=== PATIENT | male | born 1990 | race Caucasian/White ===

== ENCOUNTER 2017-02-06 18:52 | Emergency (ER) | payer BC, OTHER ==
[~2017-02-06] VITALS: Ht 180.3 cm; Wt 106.4 kg
[2017-02-06 18:58] VITALS: Ht 180.3 cm; Wt 106.4 kg
[2017-02-06] MEDS ORDERED: OPTIRAY 320 IV PRN (19:45)
[2017-02-06 20:12] LABS: BASO % 0.3 %; BASO ABS # 0.03 K/uL (0-0.2); COMPLETE YES; EOS % 1.3 %; HEMATOCRIT 43.1 % (42-52); IG% 0.3 %; LYMPH % 21.8 %; LYMPH ABS # 2.33 K/uL (1.2-3.4); MEAN CELL VOLUME 92.7 fL (80-100); MEAN CORPUSCULAR HEMOGLOBIN 31.2 pg (25-34); MEAN CORPUSCULAR HGB CONC 33.6 g/dl (32-36); MEAN PLATELET VOLUME 10.7 fL (7.4-10.4); MONO % 9.4 %; NEUT % 66.9 %; PLATELET COUNT 295 K/uL (130-400); RED BLOOD COUNT 4.65 M/uL (4.7-6.1); WHITE BLOOD COUNT 10.67 K/uL (4.8-10.8)
[2017-02-06 20:26] LABS: PROTHROMBIN TIME (PATIENT) 10.3 SECONDS (9.0-12.0)
[2017-02-06 20:30] LABS: ALT/SGPT 45 U/L (12-78); AMYLASE 50 U/L (25-115); BLOOD UREA NITROGEN 14 mg/dl (7-18); BUN/CREATININE RATIO 12.4 (10-20); CALCIUM 8.4 mg/dl (8.5-10.1); CARBON DIOXIDE 30 mmol/L (21-32); CHLORIDE 102 mmol/L (98-107); GLUCOSE 146 mg/dl (70-99); POTASSIUM 3.7 mmol/L (3.5-5.1); SODIUM 137 mmol/L (136-145)
[2017-02-06 20:33] LABS: ALKALINE PHOSPHATASE 105 U/L (45-117); AST/SGOT 52 U/L (15-37)
[2017-02-06 20:35] LABS: ACETAMINOPHEN < 2 ug/ml (10-30)
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
[2017-02-06 21:54] LABS: BENZODIAZEPINE, URINE NEG (NEG); COCAINE,URINE NEG (NEG); PHENCYCLIDINE, URINE NEG (NEG)
[2017-02-06 23:35] VITALS: BP 134/71; PULSE 78; TEMP 37.1; O2SAT 95
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
[2017-02-08 11:35] LABS: ISTAT CARBON DIOXIDE < 5 mEq/l (24-31); ISTAT CHLORIDE 97 mEq/L (101-112); ISTAT CREATININE 1.2 mg/dl (0.6-1.3); ISTAT HEMATOCRIT 46 % (42-52); ISTAT HEMOGLOBIN 15.6 g/dl (14.0-18.0); ISTAT SODIUM 138 mEq/L (135-144)
== END 2017-02-06 23:36 | disposition home or self-care (01) ==
LOC: EDBD 18:52 → C.EDB 18:53
DX: T50.7X1A Poisoning by analeptics and opioid receptor antagonists, accidental (unintentional), initial encounter (principal); R06.81 Apnea, not elsewhere classified; S06.9X9A Unspecified intracranial injury with loss of consciousness of unspecified duration, initial encounter; V49.49XA Driver injured in collision with other motor vehicles in traffic accident, initial encounter; Y92.481 Parking lot as the place of occurrence of the external cause; F17.210 Nicotine dependence, cigarettes, uncomplicated

== ENCOUNTER → 2017-02-06 | Outpatient (CLI) | payer OTHER | END | disposition home or self-care (01) | LOC: C.LAB 19:46 | DX: Z04.8 Encounter for examination and observation for other specified reasons (principal) ==

== ENCOUNTER 2017-02-23 20:45 | Inpatient (IN) | payer BC, OTHER ==
[~2017-02-23] VITALS: Ht 180.3 cm; Wt 100.0 kg
[2017-02-23] MEDS ORDERED: VANCOMYCIN INJ 1,000 MG in SODIUM CHLORIDE 0.9% 250ML 250 ML IV STA (21:03)
[2017-02-23] MEDS ORDERED: PIPERACILLIN/TAZOBACTAM 4.5 GM/100ML D5W IV STA (21:03)
[2017-02-23] MEDS ORDERED: ETHYL CHLORIDE AER PER SPRAY 100 ML CAN ONE (21:07)
--- NOTE | 2017-02-23 21:21 | EMERGENCY ROOM VISIT NOTE ---
History Report prepared by Francisco: Lisandro Westbrook Under the Supervision of: Dr. Jan Arnold M.D. 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 He states that he does not know how the infection started but believes that it may have been a spider bite. He notes that he has a lot of spiders in his house. He tried to open it and drain it himself yesterday with a knife and had some pus released from the area. However, he woke up this morning and his arm was worse. It is also red and swollen. The patient is febrile. He denies any pain to his armpit. He denies any chest pain, shortness of breath, abdominal pain, nausea, vomiting, abnormal urinary symptoms, melena, hematochezia, or diarrhea. He denies any known medical problems. Per past medical records, the patient has had an abscess in the same area in the past. He is a known IV drug user. Source of History: patient Onset: yesterday Position: arm (left) Symptom Intensity: moderate Quality: ache Timing: worsening Associated Symptoms: + fevers, No chest pain, No SOB, No nausea, No vomiting , No abdominal pain, No melena, No hematochezia, No diarrhea, No urinary symptoms Review of Systems All systems have been listed, reviewed, and are negative other than those previously mentioned. Please see Additional Medical History Sheet. Past Medical & Surgical Medical Problems: (1) Drug abuse Surgical Problems: (1) History of eye surgery Family History Asthma Blood clots Diabetes mellitus Hypertension Kidney stones Seizures Social History Smoking Status: Current Every Day Smoker Alcohol Use: occasionally Drug Use: cocaine, heroin, marijuana Marital Status: single Current/Historical Medications Scheduled Fish Oil ([place]-3), 1 CAP PO DAILY Multivitamin (Multivitamin), 1 TAB PO DAILY Valacyclovir (Valtrex), 1,000 MG PO DAILY Allergies Coded Allergies: No Known Allergies (Unverified , 01/15/16) Physical Exam Vital Signs Date Time Temp Pulse Resp B/P (MAP) Pulse Ox O2 Delivery O2 Flow Rate FiO2 02/23/17 21:56 79 16 139/73 96 Room Air 10/24/17 20:49 36.9 105 20 158/90 94 Room Air Physical Exam GENERAL: Patient awake, alert, oriented x 3. Patient follows commands. Patient does not appear toxic. Patient is adequately hydrated and well- nourished. SKIN: No erythema, pallor, cyanosis or rash HEENT: Normal head, pupils equal, reactive to light and accommodation. LUNGS: Clear to auscultation. No wheezes, no rales, no rhonchi. HEART: No murmurs. No gallops. No rubs ABDOMEN: Soft and nontender. EXTREMITIES: There is an 8x8 cm erythematous, tender, firm, and warm cellulitic area over the left antecubital fossa. No signs of foreign body or retained foreign body. No pedal or pretibial edema. No calf or thigh tenderness. NEUROLOGIC: Cranial nerves II-XII within normal limits. No gross motor sensory function deficits. Medical Decision & Procedures ER Provider Diagnostic Interpretation: Radiology results as stated below per my review and radiologist interpretation: CHEST 2 VIEWS ROUTINE HISTORY: Left arm cellulitis COMPARISON: Chest 02/06/2017. FINDINGS: The lungs are clear. Cardiac silhouette is normal in size. No pleural effusions. No pneumothorax. IMPRESSION: No acute process. Electronically signed by: Antonio Sloan M.D. 02/23/2017 10:53 PM Dictated Date/Time: 02/23/2017 10:52 PM LEFT ARM ULTRASOUND CLINICAL HISTORY: Left arm swelling. Left arm abscess. COMPARISON STUDY: None. FINDINGS: The left cephalic vein is thrombosed at the antecubital fossa. There is a large edematous area within the subcutaneous fat of the left antecubital fossa. No loculated fluid collections at this time. IMPRESSION: 1. Thrombosed cephalic vein at the left antecubital fossa. 2. Large edematous area within the subcutaneous fat of the antecubital fossa suggestive of phlegmon or developing abscess. No clear loculated fluid collection at this time. Electronically signed by: Antonio Sloan M.D. 02/23/2017 10:57 PM Dictated Date/Time: 02/23/2017 10:53 PM Laboratory Results 02/23/17 21:32 Red Blood Count 4.39, Mean Corpuscular Volume 91.8, Mean Corpuscular Hemoglobin 31.4, Mean Corpuscular Hemoglobin Concent 34.2, Mean Platelet Volume 10.4, Neutrophils (%) (Auto) 65.0, Lymphocytes (%) (Auto) 21.8, Monocytes (%) (Auto) 11.1, Eosinophils (%) (Auto) 1.6, Basophils (%) (Auto) 0.3, Neutrophils # (Auto ) 6.54, Lymphocytes # (Auto) 2.19, Monocytes # (Auto) 1.12, Eosinophils # (Auto ) 0.16, Basophils # (Auto) 0.03 02/23/17 21:32 Test 02/23/17 21:32 White Blood Count 10.06 K/uL (4.8-10.8) Red Blood Count 4.39 M/uL (4.7-6.1) Hemoglobin 13.8 g/dL (14.0-18.0) Hematocrit 40.3 % (42-52) Mean Corpuscular Volume 91.8 fL (80-100) Mean Corpuscular Hemoglobin 31.4 pg (25-34) Mean Corpuscular Hemoglobin Concent 34.2 g/dl (32-36) Platelet Count 337 K/uL (130-400) Mean Platelet Volume 10.4 fL (7.4-10.4) Neutrophils (%) (Auto) 65.0 % Lymphocytes (%) (Auto) 21.8 % Monocytes (%) (Auto) 11.1 % Eosinophils (%) (Auto) 1.6 % Basophils (%) (Auto) 0.3 % Neutrophils # (Auto) 6.54 K/uL (1.4-6.5) Lymphocytes # (Auto) 2.19 K/uL (1.2-3.4) Monocytes # (Auto) 1.12 K/uL (0.11-0.59) Eosinophils # (Auto) 0.16 K/uL (0-0.5) Basophils # (Auto) 0.03 K/uL (0-0.2) RDW Standard Deviation 48.9 fL (36.4-46.3) RDW Coefficient of Variation 14.4 % (11.5-14.5) Immature Granulocyte % (Auto) 0.2 % Immature Granulocyte # (Auto) 0.02 K/uL (0.00-0.02) Anion Gap 5.0 mmol/L (3-11) Est Creatinine Clear Calc Drug Dose 156.3 ml/min Estimated GFR () 139.0 Estimated GFR (Non- 120.0 BUN/Creatinine Ratio 14.4 (10-20) Calcium Level 8.8 mg/dl (8.5-10.1) Total Bilirubin 0.3 mg/dl (0.2-1) Aspartate Amino Transf (AST/SGOT) 61 U/L (15-37) Alanine Aminotransferase (ALT/SGPT) 44 U/L (12-78) Alkaline Phosphatase 107 U/L (45-117) Total Protein 7.7 gm/dl (6.4-8.2) Albumin 3.4 gm/dl (3.4-5.0) Globulin 4.3 gm/dl (2.5-4.0) Albumin/Globulin Ratio 0.8 (0.9-2) Laboratory results as stated above per my review. Medications Administered Medications (Trade) Dose Ordered Sig/Lloyd Route Start Time Stop Time Status Last Admin Dose Admin Piperacillin Sod/ Tazobactam Sod (Zosyn Iv) 4.5 gm NOW STAT IV 02/23/17 21:03 02/23/17 21:05 DC 02/23/17 21:52 4.5 GM Vancomycin HCl 1000 mg/Sodium Chloride 270 ml @ 125 mls/hr NOW STAT IV 02/23/17 21:03 02/23/17 23:12 DC 02/23/17 21:03 125 MLS/HR Procedure Incision & Drainage Indication: Rule out abscess Location: Left antecubital fossa Verbal consent was obtained after the risks and benefits were explained, including but not limited to bleeding, scarring, infection, pain, and bone/joint /nerve damage. At this time, the risks of the procedure are less than the risks of NOT performing the procedure. A time out was taken and the correct patient and site identified. The skin was prepped with betadine and a sterile field set. The wound was anesthetized with ethyl chloride. The abscess cavity was entered with a number 11 blade and bloody material expressed. Debridement was not performed. Packing placed and a sterile dressing applied. Detailed wound care instructions and signs and symptoms of worsening infection reviewed with the patient. No complications and the patient tolerated the procedure well. ED Course 2100: Past medical records reviewed. The patient was evaluated in room C8. A complete history and physical examination was performed. 2102: Ordered Vancomycin HCl 1000 mg/Sodium Chloride 270 ml @ 125 mls/hr IV, Zosyn Iv 4.5 gm IV 2105: I performed an incision and drainage procedure at this time. Please see the procedure note for more information. 2230: Upon reevaluation, the patient is resting. I discussed today's findings with him. He verbalized agreement of the treatment plan. I spoke with Dr. Ramirez of the [place] [facility] to evaluate the patient for further management. Medical Decision I considered multiple diagnoses including: cellulitis, insect bite, abscess, IV drug abuse and MRSA. Multiple labs and imaging were obtained. Please see above. Further history from the patient reveals past IV drug abuse. Last use was 3 weeks ago. Most likely this infection is secondary to IV drug abuse and not from an insect bite. The patient has a large cellulitic questionable abscess formation in his left antecubital fossa. Left cephalic vein is occluded. The patient was started on IV antibiotics after blood cultures were obtained. I did make a small incision in the abscess but little to no pus was released. I discussed care with the patient and with the hospitalist. The patient had a prior history of a similar event a few years ago. Medication Reconcilliation Current Medication List: was personally reviewed by me Blood Pressure Screening Patient's blood pressure: Elevated blood pressure Blood pressure disposition: Elevated BP felt to be situational Consults Time Called: 2229 Consulting Physician: Dr. Ramirez - [facility] Returned Call: [phone] Discussed the patient's case with him. The patient will be evaluated for further management. Impression Primary Impression: Cellulitis of left arm Scribe Attestation The scribe's documentation has been prepared under my direction and personally reviewed by me in its entirety. I confirm that the note above accurately reflects all work, treatment, procedures, and medical decision making performed by me. Departure Information Dispostion Being Evaluated By Hospitalist Referrals No Doctor, Assigned (PCP) Patient Instructions My [facility]
[2017-02-23] MEDS ORDERED: MULT-506 PO (21:38)
[2017-02-23] MEDS ORDERED: OMEG10007 PO (21:39)
[2017-02-23] MEDS ORDERED: VALA500T60 PO (21:40)
[2017-02-23 21:46] LABS: BASO % 0.3 %; BASO ABS # 0.03 K/uL (0-0.2); COMPLETE YES; EOS % 1.6 %; HEMATOCRIT 40.3 % (42-52); IG% 0.2 %; LYMPH % 21.8 %; LYMPH ABS # 2.19 K/uL (1.2-3.4); MEAN CELL VOLUME 91.8 fL (80-100); MEAN CORPUSCULAR HEMOGLOBIN 31.4 pg (25-34); MEAN CORPUSCULAR HGB CONC 34.2 g/dl (32-36); MEAN PLATELET VOLUME 10.4 fL (7.4-10.4); MONO % 11.1 %; PLATELET COUNT 337 K/uL (130-400); RED BLOOD COUNT 4.39 M/uL (4.7-6.1); WHITE BLOOD COUNT 10.06 K/uL (4.8-10.8)
[2017-02-23 22:05] LABS: BUN/CREATININE RATIO 14.4 (10-20); CALCIUM 8.8 mg/dl (8.5-10.1); CREATININE 0.87 mg/dl (0.60-1.40); POTASSIUM 3.5 mmol/L (3.5-5.1)
[2017-02-23 22:08] LABS: ALB/GLOB RATIO 0.8 (0.9-2)
--- NOTE | 2017-02-23 22:54 | DIAGNOSTIC IMAGING REPORT ---
CHEST 2 VIEWS ROUTINE HISTORY: Left arm cellulitis COMPARISON: Chest 02/06/2017. FINDINGS: The lungs are clear. Cardiac silhouette is normal in size. No pleural effusions. No pneumothorax. IMPRESSION: No acute process. Electronically signed by: Antonio Sloan M.D. 02/23/2017 10:53 PM Dictated Date/Time: 02/23/2017 10:52 PM
--- NOTE | 2017-02-23 22:58 | DIAGNOSTIC IMAGING REPORT ---
LEFT ARM ULTRASOUND CLINICAL HISTORY: Left arm swelling. Left arm abscess. COMPARISON STUDY: None. FINDINGS: The left cephalic vein is thrombosed at the antecubital fossa. There is a large edematous area within the subcutaneous fat of the left antecubital fossa. No loculated fluid collections at this time. IMPRESSION: 1. Thrombosed cephalic vein at the left antecubital fossa. 2. Large edematous area within the subcutaneous fat of the antecubital fossa suggestive of phlegmon or developing abscess. No clear loculated fluid collection at this time. Electronically signed by: Antonio Sloan M.D. 02/23/2017 10:57 PM Dictated Date/Time: 02/23/2017 10:53 PM
--- NOTE | 2017-02-23 23:59 | History and Physical ---
History & Physical Date & Time of Service: Feb 23, 2017 at 23:54 Chief Complaint: Abscess On Arm, Care Works Referred Primary Care Physician: No Doctor, Assigned History of Present Illness Source: patient 26 y/o M denies any significant medical history aside form IV drug use. States he last used IV heroin 3 weeks prior. Has developed an abscess-like infection over his L antecubital area with extending cellulitis. Denies any associated fevers. Denies any CP, SOB or night sweats. Past Medical/Surgical History IV heroin use Family History Asthma Blood clots Diabetes mellitus Hypertension Kidney stones Seizures Social History States he only smokes occasionally - does not drink - IV heroin use as above - employed Smoking Status: Current Every Day Smoker Drug Use: cocaine, heroin, marijuana Marital Status: single Multi-Drug Resistant Organisms History of MDRO: No Allergies Coded Allergies: No Known Allergies (Unverified , 01/15/16) Home Medications Scheduled Fish Oil ([place]-3), 1 CAP PO DAILY Multivitamin (Multivitamin), 1 TAB PO DAILY Valacyclovir (Valtrex), 1,000 MG PO DAILY Review of Systems Constitutional: No fever, No chills, No sweats Eyes: No worsening of vision ENT: No hearing loss, No nasal symptoms Respiratory: No cough, No sputum, No wheezing Cardiovascular: No chest pain, No PND Abdomen: No pain, No nausea, No vomiting Musculoskeletal: + muscle pain, + swelling (L arm pain and swelling) Genitourinary - Male: No hematuria, No dysuria Neurologic: No memory loss, No paralysis, No weakness Psychiatric: No depression symptoms Endocrine: No fatigue Hematologic / Lymphatic: No abnormal bleeding/bruising Integumentary: + rash (as above) Physical Exam Vital Signs Date Time Temp Pulse Resp B/P (MAP) Pulse Ox O2 Delivery O2 Flow Rate FiO2 02/23/17 21:56 79 16 139/73 96 Room Air 02/23/17 20:49 36.9 105 20 158/90 94 Room Air General Appearance: WD/WN, no apparent distress Head: normocephalic, atraumatic Eyes: normal inspection ENT: normal ENT inspection, pharynx normal Neck: supple, no adenopathy, thyroid normal, no JVD Respiratory/Chest: chest non-tender, lungs clear, normal breath sounds Cardiovascular: regular rate, rhythm, no edema, no gallop Abdomen/GI: normal bowel sounds, non tender, soft Back: normal inspection, no CVA tenderness Extremities/Musculoskelatal: no calf tenderness, no pedal edema, + pertinent finding (circular wound present on antecubital area with minimal exudate and cellulitis extending to forearm and above elbow ) 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, no motor/sensory deficits, alert, normal mood/affect, normal reflexes, oriented x 3 Skin: + pertinent finding (circular wound present on antecubital area with minimal exudate and cellulitis extending to forearm and above elbow ) Diagnostics Laboratory Results Results Past 24 Hours Test 02/23/17 21:32 Range/Units White Blood Count 10.06 4.8-10.8 K/uL Red Blood Count 4.39 4.7-6.1 M/uL Hemoglobin 13.8 14.0-18.0 g/dL Hematocrit 40.3 42-52 % Mean Corpuscular Volume 91.8 80-100 fL Mean Corpuscular Hemoglobin 31.4 25-34 pg Mean Corpuscular Hemoglobin Concent 34.2 32-36 g/dl Platelet Count 337 130-400 K/uL Mean Platelet Volume 10.4 7.4-10.4 fL Neutrophils (%) (Auto) 65.0 % Lymphocytes (%) (Auto) 21.8 % Monocytes (%) (Auto) 11.1 % Eosinophils (%) (Auto) 1.6 % Basophils (%) (Auto) 0.3 % Neutrophils # (Auto) 6.54 1.4-6.5 K/uL Lymphocytes # (Auto) 2.19 1.2-3.4 K/uL Monocytes # (Auto) 1.12 0.11-0.59 K/uL Eosinophils # (Auto) 0.16 0-0.5 K/uL Basophils # (Auto) 0.03 0-0.2 K/uL RDW Standard Deviation 48.9 36.4-46.3 fL RDW Coefficient of Variation 14.4 11.5-14.5 % Immature Granulocyte % (Auto) 0.2 % Immature Granulocyte # (Auto) 0.02 0.00-0.02 K/uL Sodium Level 136 136-145 mmol/L Potassium Level 3.5 3.5-5.1 mmol/L Chloride Level 101 98-107 mmol/L Carbon Dioxide Level 30 21-32 mmol/L Anion Gap 5.0 3-11 mmol/L Blood Urea Nitrogen 13 7-18 mg/dl Creatinine 0.87 0.60-1.40 mg/dl Est Creatinine Clear Calc Drug Dose 156.3 ml/min Estimated GFR () 139.0 Estimated GFR (Non- 120.0 BUN/Creatinine Ratio 14.4 10-20 Random Glucose 148 70-99 mg/dl Calcium Level 8.8 8.5-10.1 mg/dl Total Bilirubin 0.3 0.2-1 mg/dl Aspartate Amino Transf (AST/SGOT) 61 15-37 U/L Alanine Aminotransferase (ALT/SGPT) 44 12-78 U/L Alkaline Phosphatase 107 45-117 U/L Total Protein 7.7 6.4-8.2 gm/dl Albumin 3.4 3.4-5.0 gm/dl Globulin 4.3 2.5-4.0 gm/dl Albumin/Globulin Ratio 0.8 0.9-2 Microbiology Results 02/23/17 Blood Culture, Received Pending 02/23/17 Blood Culture, Received Pending Impression Assessment and Plan 26 y/o M denies any significant medical history aside form IV drug use. States he last used IV heroin 3 weeks prior. Has developed an abscess-like infection over his L antecubital area with extending cellulitis. Denies any associated fevers. Denies any CP, SOB or night sweats. 1) Abscess - Pt placed on Vanc and Ceftriaxone pending culture results. We will consult ortho as he may need debridement. 2) IVDU - Pt may need counseling prior to DC - He initially did not volunteer information reg use and seems to minimize this so we cannot quantify his habit. It would be fair to assume his dependence may be severe considering the route. Full code - Heparin prophylaxis - total time for this admit including review of labs meds, imaging - discussion with pt and ER attending 40 min Level of Care Med/Surg Resuscitation Status FULL RESUSCITATION VTE Prophylaxis VTE Risk Assessment Done? Y/N: Yes Risk Level: Low Given or contraindicated: Unfractionated heparin SQ
[2017-02-24] MEDS ORDERED: KETOROLAC TROMETHAMINE 30 MG/ML VIAL IV PRN
[2017-02-24] MEDS ORDERED: LORAZEPAM 2 MG/ML 1 ML VIAL IV PRN
[2017-02-24] MEDS ORDERED: ACETAMINOPHEN 325 MG TAB PO PRN
[2017-02-24] MEDS ORDERED: MAGNESIUM HYDROXIDE SUSP 30 ML UDC PO PRN
[2017-02-24] MEDS ORDERED: ALUMINUM/MAGNESIUM/SIMETH (MAALOX MAX) 30 ML UDC PO PRN
[2017-02-24 00:24] VITALS: BP 136/73; PULSE 72; TEMP 36.7; O2SAT 95; Ht 180.3 cm; Wt 100.0 kg
[2017-02-24] MEDS ORDERED: POLYETHYLENE (MIRALAX) 17 GM PACK PO PRN (00:45)
[2017-02-24] MEDS ORDERED: VANCOMYCIN INJ 1,500 MG in SODIUM CHLORIDE 0.9% 500ML 500 ML IV SCH ×2 (01:00→10:00)
[2017-02-24] MEDS: NSS + 20MEQ KCL 1000ML 1,000 ML IV SCH ×2 (01:05→12:07)
[2017-02-24 01:15] LABS: PROTHROMBIN TIME (PATIENT) 10.7 SECONDS (9.0-12.0)
[2017-02-24] MEDS ORDERED: VANCOMYCIN CONSULT ACTIVE PRN (02:00)
[2017-02-24 04:00] VITALS: BP 131/85; PULSE 70; TEMP 36.4; O2SAT 97
[2017-02-24] MEDS: HEPARIN SOD 5000 UNIT/0.5 ML CARP SQ SCH ×3 (05:49→17:27)
[2017-02-24] MEDS: CEFTRIAXONE SOD INJ 1 GM in DEXTROSE 5% ADD-VANTAGE 50ML 50 ML IV SCH (05:49)
--- NOTE | 2017-02-24 06:10 | Pharmacy Progress Note ---
Pharmacy Abx Initial Consult Date of Service Feb 24, 2017. Pharmacy Dosing Scope Date of Consult: 02/23/17 Consultation requested by: Dr. Ramirez Pharmacy is consulted to initiate Vancomycin IV dosing therapy, order appropriate labs and adjust drug dose/frequency. Subjective The patient is a 26 year old male admitted on Feb 23, 2017 at 23:53 with abscess /cellulitis on his (L) upper arm due to history of IV drug abuse. Objective Height (Feet): 5 Height (Inches): 11.00 Weight (Kilograms): 100.000 Vital Signs (Past 12Hrs) Vital Signs Past 12 Hours Date Time Temp Pulse Resp B/P (MAP) Pulse Ox O2 Delivery O2 Flow Rate FiO2 02/24/17 04:00 36.4 70 16 131/85 (100) 97 Room Air 02/24/17 00:24 36.7 72 16 136/73 95 Room Air 02/24/17 00:04 75 18 126/58 98 Room Air 02/23/17 21:56 79 16 139/73 96 Room Air 02/23/17 20:49 36.9 105 20 158/90 94 Room Air Lab Results (24Hrs) Laboratory Tests (24 Hours) Test 02/23/17 21:32 White Blood Count 10.06 K/uL (4.8-10.8) Red Blood Count 4.39 M/uL (4.7-6.1) L Hemoglobin 13.8 g/dL (14.0-18.0) L Hematocrit 40.3 % (42-52) L Mean Corpuscular Volume 91.8 fL (80-100) Mean Corpuscular Hemoglobin 31.4 pg (25-34) Mean Corpuscular Hemoglobin Concent 34.2 g/dl (32-36) Platelet Count 337 K/uL (130-400) Mean Platelet Volume 10.4 fL (7.4-10.4) Neutrophils (%) (Auto) 65.0 % Lymphocytes (%) (Auto) 21.8 % Monocytes (%) (Auto) 11.1 % Eosinophils (%) (Auto) 1.6 % Basophils (%) (Auto) 0.3 % Neutrophils # (Auto) 6.54 K/uL (1.4-6.5) H Lymphocytes # (Auto) 2.19 K/uL (1.2-3.4) Monocytes # (Auto) 1.12 K/uL (0.11-0.59) H Eosinophils # (Auto) 0.16 K/uL (0-0.5) Basophils # (Auto) 0.03 K/uL (0-0.2) Micro Results Date/Time Source Procedure Growth Status 02/23/17 21:32 Blood Blood Culture Pending Received 02/23/17 21:26 Blood Blood Culture Pending Received 02/23/17 21:32 Cellulitis Left Upper Extremity Gram Stain Pending Received 02/23/17 21:32 Cellulitis Left Upper Extremity Wound Culture Pending Received Assessment & Plan Assessment 26 year old male with abscess to (L) upper arm Plan Vancomycin for treatment of abscess Vancomycin IV * Loading dose: 1000 mg (ED) and 1500mg upon presentation to floor total (25 mg /kg) * Maintenance dose: 1500mg IV (15 mg/kg) every 6 hours * Goal trough level for Vancomycin for abscess: 15 to 20 mcg/mL * Trough/Random level ordered prior to 0400 on 02/25/17 * I estimated patients half life at around 5 hours. I feel we will most likely be able to reduce frequency to every 8 hours after first trough level assessed. Pharmacy will continue to follow and will adjust dose/frequency as necessary. Thank you.
[2017-02-24 07:48] VITALS: BP 134/79; PULSE 74; TEMP 36.5; O2SAT 98
[2017-02-24 15:20] VITALS: BP 127/70; PULSE 71; TEMP 36.5; O2SAT 97
[2017-02-24 16:06] VITALS: O2SAT 98
[2017-02-24] MEDS: VANCOMYCIN INJ 1,750 MG in SODIUM CHLORIDE 0.9% 500ML 500 ML IV SCH (17:26)
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
--- NOTE | 2017-02-24 22:06 | DIAGNOSTIC IMAGING REPORT ---
L UPPER EXT JOINT WITHOUT CLINICAL HISTORY: 26 years-old Male with arm abscess. Acute redness and swelling of the left elbow with concern for abscess. History of intravenous drug abuse. History of thrombosed cephalic vein. COMPARISON: Ultrasound of the left upper extremity 02/23/2017 TECHNIQUE: Multiplanar, multi sequence MRI of the left elbow was performed without intravenous contrast. FINDINGS: LATERAL COLLATERAL LIGAMENT: The lateral collateral ligaments including the lateral ulnar collateral ligament are intact and unremarkable in appearance. COMMON EXTENSOR TENDON: The common extensor origin from the lateral epicondyle is normal in appearance. No evidence of tendinosis or tear to suggest lateral epicondylitis. MEDIAL COLLATERAL LIGAMENT: The ulnar collateral ligament, including the anterior and posterior bands, is intact and unremarkable in appearance. COMMON FLEXOR TENDON: The common flexor origin from the medial epicondyle is normal in appearance. No evidence of tendinosis or tear to suggest medial epicondylitis. ULNAR NERVE: The ulnar nerve is normally located in the ulnar sulcus and is unremarkable in appearance. BONE MARROW: Bone marrow is normal in signal without evidence of fracture, marrow contusion or marrow occupying lesion. SOFT TISSUES: There is moderate to extensive soft tissue swelling about the imaged left upper extremity with subcutaneous edema and skin thickening. Luminal expansion with slightly increased T1 and T2 signal is noted involving the cephalic vein as seen on image 11 of series 4 and 11 of series 10 with wall thickening compatible with thrombophlebitis. Additionally, there is a focal circumscribed heterogeneous T2 hyperintense subcutaneous collection medial to the thrombosed cephalic vein superficial to the pronator teres, 1.1 x 2.3 x 3.4 cm suggesting abscess as seen on image 19 series 10 and image 21 of series 9. Soft tissue edema extends in between the anterior and lateral compartments of the forearm along the muscular fascial planes. There is moderate edema of the extensor musculature, notably involving the brachioradialis as seen on image 20 of series 10. IMPRESSION: 1. Moderate to extensive subcutaneous edema, phlegmonous change and skin edema throughout the imaged left upper extremity compatible with cellulitis. Focal subcutaneous T2 hyperintense collection of the antecubital fossa just superficial to the pronator teres musculature is compatible with abscess measuring up to 1.1 x 2.3 x 3.4 cm. 2. Thrombophlebitis of the cephalic vein again seen. 3. Moderate reactive or infectious myositis of the brachioradialis musculature. Deep tissue edema extends between the anterior and lateral muscular compartments without intramuscular abscess extension. 4. No significant bone marrow edema or evidence of osteomyelitis. The above report was generated using voice recognition software. It may contain grammatical, syntax or spelling errors. Electronically signed by: Francisco Javier Kearney M.D. 02/24/2017 10:04 PM Dictated Date/Time: 02/24/2017 9:41 PM
[2017-02-25] VITALS (10 sets, daily range): BP systolic 103–147; BP diastolic 63–93; PULSE 58–102; TEMP 36.3–37.1; O2SAT 93–98
[2017-02-25] MEDS: VANCOMYCIN INJ 1,750 MG in SODIUM CHLORIDE 0.9% 500ML 500 ML IV SCH ×2 (01:38→10:21)
[2017-02-25] MEDS ORDERED: VANCOMYCIN TROUGH SCH (03:30)
[2017-02-25] MEDS: CEFTRIAXONE SOD INJ 1 GM in DEXTROSE 5% ADD-VANTAGE 50ML 50 ML IV SCH (06:23)
--- NOTE | 2017-02-25 09:27 | Clinical Documentation Query ---
CLINICAL DOCUMENTATION QUERY In your clinical opinion is this patient being managed for: ( ) Thrombophlebitis of cephalic vein in setting of infection treated with IV antibiotics and SQ heparin. ( ) Not Agree ( ) Other explanation of clinical findings (Please Explain) ( ) Unable to determine (Please Define) ( ) Need to Discuss The medical record reflects the following clinical findings, treatment, and risk factors. Clinical Indicators: MRI and US confirm thrombophlebitis of the cephalic vein. Treatment: IV Vancomycin, IV Ceftriaxone, SQ heparin Venous US, MRI Risk Factors: Infection, IV drug use, Please clarify and document your clinical opinion in the progress notes and discharge summary. Terms such as "probable", "suspected", "likely", "questionable", "possible", or "still to be ruled out" are acceptable. IF IN AGREEMENT, YOU MUST DOCUMENT ABOVE DIAGNOSTIC STATEMENT IN DAILY PROGRESS NOTES AND DISCHARGE SUMMARY. This document is not part of the patient's record. Thank You, Archie Lowery, RN [phone]
[2017-02-25] MEDS ORDERED: VANCOMYCIN TROUGH ONE (09:30)
--- NOTE | 2017-02-25 11:10 | Pharmacy Progress Note ---
Pharmacy Abx Dose Progress Nt Date of Service Feb 25, 2017. Pharmacy Dosing Scope The patient is currently receiving the following antimicrobial agents per Pharmacy consult: Vancomycin 1.75 gm IV q 8 hours He is also on Rocephin 1 gm iv q 24 hours. Objective Height (Feet): 5 Height (Inches): 11.00 Weight (Kilograms): 100.000 Vital Signs (Past 12Hrs) Vital Signs Past 12 Hours Date Time Temp Pulse Resp B/P (MAP) Pulse Ox O2 Delivery O2 Flow Rate FiO2 02/25/17 08:00 Room Air 02/25/17 07:32 36.7 69 18 103/63 (76) 95 Room Air 02/25/17 00:00 Room Air Micro Results Date/Time Source Procedure Growth Status 02/23/17 21:32 Blood Blood Culture - Preliminary NO GROWTH TO DATE. Resulted 02/23/17 21:26 Blood Blood Culture - Preliminary NO GROWTH TO DATE. Resulted 02/23/17 21:32 Cellulitis Left Upper Extremity Gram Stain - Final Resulted 02/23/17 21:32 Cellulitis Left Upper Extremity Wound Culture Pending Resulted Risk Factors for Resistance * Pt has no risk factors for resistance. Assessment & Plan Assessment 26 year old male receiving Vancomycin and rocephin for treatment of abscess/ cellulitis. At risk for bacteremia as patient has a history of IV drug abuse. Goal vanco trough 15-20 mcg/mL. Blood and wound cultures pending. Day # 3 of antimicrobial therapy Item Value Date Time Vancomycin Level Trough 11.8 mcg/ml 02/25/17 0930 Based on subtherapeutic trough level of 11.8, increased vanco to 22.5mg/kg. Predicting a trough level of ~16mcg/mL. A higher than traditional dose is being used due to his obesity and kidney function. He is at risk to accumulate drug. A trough level will be ordered after the fourth maintenance dose to accurately reflect steady state. Plan Vancomycin IV * Vanco 2.25gm IV q 8 hours * Trough level ordered for 02/26 @1530. Pharmacy will continue to follow and will adjust dose/frequency as necessary. Thank you.
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
[2017-02-25] MEDS ORDERED: ATROPINE SULFATE 0.1 MG/ML 5ML SYR IV PRN ×2 (14:30→14:45)
[2017-02-25] MEDS ORDERED: LABETALOL HCL IV 5 MG/ML 20ML IV PRN ×2 (14:30→14:45)
[2017-02-25] MEDS ORDERED: HYDROmorphone INJ 1 MG/ML SYR IV PRN (14:30)
[2017-02-25] MEDS ORDERED: FENTANYL CITRATE INJ 50 MCG/1 ML 2 ML VIAL IV PRN ×2 (14:30→14:45)
[2017-02-25] MEDS ORDERED: EpHEDrine SULFATE INJ 50 MG/ML AMP IV PRN ×2 (14:30→14:45)
[2017-02-25] MEDS ORDERED: ONDANSETRON INJ 2 MG/ML 2 ML VIAL IV PRN ×2 (14:30→14:45)
[2017-02-25] MEDS ORDERED: MEPERIDINE HCL 25 MG/ML CARP IV PRN ×2 (14:30→14:45)
[2017-02-25] MEDS ORDERED: BACITRACIN 50000 UNIT VIAL ONE (14:46)
--- NOTE | 2017-02-25 15:09 | History & Physical Bridge Note ---
H&P Re-Evaluation Bridge Note: I have examined the patient, reviewed the History & Physical and in the interval since the performance of the History & Physical I have noted the following changes of clinical significance: No changes noted
[2017-02-25] MEDS ORDERED: LIDOCAINE HCL 2% 2 ML VIAL (20MG/ML) ONE (15:13)
[2017-02-25] MEDS ORDERED: PROPOFOL IV EMULSION 10 MG/ML 20 ML VIAL IV ONE ×2 (15:13→15:14)
[2017-02-25] MEDS ORDERED: MIDAZOLAM HCL 1 MG/ML 2ML VIAL ONE (15:14)
[2017-02-25] MEDS ORDERED: FENTANYL CITRATE INJ 50 MCG/1 ML 2 ML VIAL ONE ×2 (15:14→15:52)
[2017-02-25] MEDS ORDERED: KETAMINE HCL INJ 50 MG/ML 10 ML VIAL ONE (15:17)
--- NOTE | 2017-02-25 15:38 | PROGRESS NOTE ---
DATE: 02/25/2017 SUBJECTIVE: A 26-year-old gentleman admitted with left arm antecubital fossa infection. He says it was related to some type of scratch or bite, but most likely IV drug use. He does admit to IV drug use. Really, he is still not having a whole lot of pain. 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 Denies any other complaints. OBJECTIVE: VITAL SIGNS: Temperature 36.4. Vital signs stable. PHYSICAL EXAMINATION: GENERAL: Reveals a pleasant, middle-aged male. He is lying in bed, looks quite comfortable. EXTREMITIES: Examination of left arm reveals a firm mass over the anterolateral aspect of his antecubital fossa. It is probably about 7 cm in induration. He has got a full elbow motion. He does have significant swelling of his entire arm, particularly below this level. He can flex and extend his fingers appropriately. Compartments are soft. There is no active drainage. MRI: MRI does review what looks like an abscess in the subcutaneous tissues of his left antecubital fossa area. He does have a little edema in the muscle as well. I think this likely represents necrotic tissue with abscess. MICROBIOLOGY RESULTS: No growth on blood cultures. Wound cultures revealing some pinpoint growth. ASSESSMENT: This is a 26-year-old male with a left antecubital fossa abscess. Most likely this is from IV drug abuse/use. In any case, it really needs to be washed out and cleaned out. PLAN: We are going to take him to the operating room and do an I&D of his left antecubital fossa abscess. We explained this in depth to the patient; he understands and would like to proceed. The risks and benefits of this procedure were explained to the patient including but not limited to DVT, PE, , infection, neurological injury, vascular injury, bleeding problems, loss of elbow motion, loss of function, need for further surgery in the future, etc. The patient understands and desires to proceed. Informed consent was obtained.
--- NOTE | 2017-02-25 16:25 | [facility] Post Operative Brief Note ---
Immediate Operative Summary Operative Date Feb 25, 2017. Pre-Operative Diagnosis Left antecubital fossa abscess Post-Operative Diagnosis Same Procedure(s) Performed Left Arm Abscess Incision and Drainage Surgeon Dr Mendiola Platform Loader Surgeon(s) Rodri Escobedo PA-C Estimated Blood Loss 20ML Findings Left Antecubital Fossa Abscess Specimens Culture #1 left antecubital fossa abscess for gram stain, aerobic and anaerobic culture Culture #2 left antecubital fossa abscess for gram stain, aerobic and anaerobic culture Anesthesia General Complication(s) None Disposition Recovery Room / PACU
[2017-02-25] MEDS: HYDROmorphone INJ 1 MG/ML SYR IV PRN ×4 (16:37→16:52)
--- NOTE | 2017-02-25 17:00 | Anesthesiology Progress Note ---
Anesthesia Post Op Note Date & Time Feb 25, 2017 at 17:00 Vital Signs Pain Intensity: 4 Vital Signs Past 12 Hours Date Time Temp Pulse Resp B/P (MAP) Pulse Ox O2 Delivery O2 Flow Rate FiO2 02/25/17 16:55 83 16 136/81 91 Room Air 02/25/17 16:45 91 16 143/87 97 Oxymask 10 02/25/17 16:35 90 16 142/92 97 Oxymask 10 02/25/17 16:29 36.3 83 16 132/85 98 Oxymask 10 02/25/17 14:00 36.4 102 18 138/76 (96) 98 Room Air 02/25/17 11:09 37.0 64 18 128/66 (86) 93 02/25/17 08:00 Room Air 02/25/17 07:32 36.7 69 18 103/63 (76) 95 Room Air Notes Mental Status: alert / awake / arousable, participated in evaluation Pt Amnestic to Procedure: Yes Nausea / Vomiting: adequately controlled Pain: adequately controlled Airway Patency, RR, SpO2: stable & adequate BP & HR: stable & adequate Hydration State: stable & adequate Anesthetic Complications: no major complications apparent
[2017-02-25] MEDS: VANCOMYCIN INJ 2,250 MG in SODIUM CHLORIDE 0.9% 500ML 500 ML IV SCH ×2 (17:47→23:43)
[2017-02-25] MEDS: TRAMADOL HCL 50 MG TAB PO PRN (17:48)
[2017-02-25] MEDS ORDERED: NALOXONE HCL 0.4 MG/1 ML VIAL/CARP IV PRN (19:15)
--- NOTE | 2017-02-25 21:04 | OPERATIVE REPORT ---
DATE OF OPERATION: 02/25/2017 SURGEON STAFF: Emmanuel Mendiola MD. LIBRARY SERVICES ASSISTANT: LARISA Padgett. PREOPERATIVE DIAGNOSIS: Left antecubital fossa abscess. POSTOPERATIVE DIAGNOSIS: Left antecubital fossa abscess. PROCEDURE PERFORMED: Irrigation and debridement of left antecubital fossa abscess. COMPLICATIONS: None. ESTIMATED BLOOD LOSS: 20 mL. FLUID REPLACEMENT: 500 mL crystalloid fluid replacement. ANESTHESIA: General. SPECIMENS: Culture of abscess fluid was sent for stat gram stain, aerobic and anaerobic culture. Some tissue was also sent for a tissue culture. OPERATIVE INDICATIONS: The patient is a 26-year-old male with a fairly well known history of IV drug abuse who developed pain and discomfort in his left arm over the weekend. He states he is not sure how this happened. He was admitted by the medicine service. He had an obvious swollen arm with very indurated area. MRI suggested an abscess and patient is indicated for irrigation and debridement. OPERATIVE FINDINGS: Operative findings revealed an obvious abscess in the subcutaneous tissues. This is well confined outside the fascial layer. There was a bunch of necrotic tissue and some moderate amount of pus. It did not appear to involve the underlying musculature with any significant degree other than that of slight degree to the brachioradialis. OPERATIVE PROCEDURE: The patient taken to the operating room, identified and placed on the operating table in supine position. All contact areas were appropriately padded. A general anesthetic was implemented by anesthesia team. The patient had been receiving ceftriaxone as well as vancomycin IV antibiotics on the floor, so he was not given additional antibiotics. Left arm tourniquet was placed. The left upper extremity was then prepped and draped in the usual sterile fashion. Left arm was elevated but not exsanguinated. The tourniquet was placed at 300 mmHg. An incision over the abscess was then performed. It was about 8 cm in length total. I made a Chevron type incision to avoid crossing the antecubital fossa crease in the right angle. I also incorporated this previous small incision of about 1 cm that he had in this. Sharp dissection was carried out through the subcutaneous tissues. Subcutaneous tissues were very indurated and thickened. I then bluntly dissected with some scissors and entered the abscess pocket. This was superficial to the fascia proximally. Some cultures were obtained and some tissue was sent for tissue culture. I took a knife and cut out all the necrotic tissue. I used a rongeur to debride the remainder of the necrotic tissue. The brachioradialis muscle looked a little inflamed but was not necrotic in any fashion. I did make a small incision proximally to make sure the underlying muscle of biceps was not involved. The underlying biceps muscle looked to be sealed off from the abscess. A thorough debridement was performed with the use of a rongeur. I then irrigated the wound with 3 liters of pulsatile lavage solution. The tourniquet was then let down for a tourniquet time of 12 minutes. Hemostasis was assured with use of electrocautery. The skin was then closed with a combination of 3-0 and 2-0 nylon suture in a simple fashion. The arm was then cleaned, dried and a sterile dressing of Xeroform, 4 x 4's, sterile cast padding and an Arnaud bandage were applied followed by a sling. The patient was then brought out of general anesthesia and transferred to the recovery room in stable condition. The patient tolerated the procedure well with no complications. All needle and sponge counts were correct at the end of the operation. I attest to the content of the Intraoperative Record and any orders documented therein. Any exceptions are noted below. [facility]
[2017-02-26 00:33] VITALS: BP 149/77; PULSE 100; TEMP 37.4; O2SAT 95
[2017-02-26 02:47] LABS: BENZODIAZEPINE, URINE POS (NEG); COCAINE,URINE NEG (NEG); PHENCYCLIDINE, URINE NEG (NEG)
[2017-02-26] MEDS: CEFTRIAXONE SOD INJ 1 GM in DEXTROSE 5% ADD-VANTAGE 50ML 50 ML IV SCH (06:38)
[2017-02-26 07:31] VITALS: BP 167/66; PULSE 72; TEMP 36.6; O2SAT 97
[2017-02-26] MEDS: VANCOMYCIN INJ 2,250 MG in SODIUM CHLORIDE 0.9% 500ML 500 ML IV SCH ×2 (07:47→20:01)
--- NOTE | 2017-02-26 08:19 | PROGRESS NOTE ---
DATE: 02/26/2017 DATE: 02/26/2017 SUBJECTIVE: A 26-year-old gentleman postop day 1 from I&D of a left antecubital fossa abscess. Seems to be doing better. Having some pain. No chest pain or shortness of breath. No new complaints. OBJECTIVE: VITAL SIGNS: Temperature 36.6. Vital signs stable. PHYSICAL EXAMINATION: GENERAL: Reveals a healthy pleasant, 26-year-old male. He is walking around his room this morning. EXTREMITIES: Examination of left arm reveals the dressing to be in place. The arm swelling seems to be a bit improved this morning. He can flex and extend his fingers appropriately. He moves his elbow pretty normally. He is not wearing his sling. LABORATORY DATA: Culture results - his Gram stain from the OR revealed gram positive cocci. Cultures are pending. His Gram stain from the wound is showing some pinpoint growth. Intraoperative cultures are going to be most accurate. ASSESSMENT: A 26-year-old gentleman postop day 1 from I&D of a left antecubital fossa abscess. Clinically, his arm looks a little bit better. Gram positive cocci is likely appropriate. It would be best to find out his sensitivities and the bacteria before discharge. PLAN: Recommend continued just routine wound care and IV antibiotics with broad-spectrum coverage. I think once we know the bacteria and sensitivities it is like he can be converted to p.o. antibiotics but he is going to have to take him. I emphasized the importance of resting his arm and let the wounds heal and the importance of wearing sling. I will see him tomorrow and change his dressing. Any orthopedic questions can be directed to me at [phone].
[2017-02-26] MEDS: ONDANSETRON INJ 2 MG/ML 2 ML VIAL IV PRN ×2 (11:23→17:53)
[2017-02-26] MEDS: TRAMADOL HCL 50 MG TAB PO PRN ×2 (11:24→20:03)
[2017-02-26] MEDS: LORAZEPAM INJ 1 MG in SYRINGE 0.5 ML IV PRN ×2 (11:40→18:03)
[2017-02-26] MEDS ORDERED: VANCOMYCIN TROUGH ONE (15:30)
[2017-02-26 15:53] VITALS: BP 126/84; PULSE 75; TEMP 36.8; O2SAT 98
[2017-02-26 23:45] VITALS: BP 140/83; PULSE 73; TEMP 36.5; O2SAT 99
[2017-02-27] MEDS: LORAZEPAM INJ 1 MG in SYRINGE 0.5 ML IV PRN ×2 (00:40→06:17)
[2017-02-27] MEDS: TRAMADOL HCL 50 MG TAB PO PRN ×2 (00:49→06:16)
[2017-02-27] MEDS: VANCOMYCIN INJ 2,250 MG in SODIUM CHLORIDE 0.9% 500ML 500 ML IV SCH ×2 (01:44→09:43)
[2017-02-27 06:06] LABS: HEMATOCRIT 39.6 % (42-52); MEAN CELL VOLUME 93.4 fL (80-100); MEAN CORPUSCULAR HEMOGLOBIN 30.7 pg (25-34); MEAN CORPUSCULAR HGB CONC 32.8 g/dl (32-36); MEAN PLATELET VOLUME 10.2 fL (7.4-10.4); PLATELET COUNT 407 K/uL (130-400); RED BLOOD COUNT 4.24 M/uL (4.7-6.1); WHITE BLOOD COUNT 10.88 K/uL (4.8-10.8)
[2017-02-27] MEDS: CEFTRIAXONE SOD INJ 1 GM in DEXTROSE 5% ADD-VANTAGE 50ML 50 ML IV SCH (06:17)
[2017-02-27 06:25] LABS: CREATININE 0.83 mg/dl (0.60-1.40)
[2017-02-27 07:32] VITALS: BP 117/66; PULSE 55; TEMP 36.5; O2SAT 95
--- NOTE | 2017-02-27 09:22 | PROGRESS NOTE ---
DATE: 02/27/2017 SUBJECTIVE: A 26-year-old gentleman postop day 2 from I&D of the left antecubital fossa abscess. He is doing well. Not having much pain. No chest pain or shortness of breath. OBJECTIVE: VITAL SIGNS: Temperature 36.5. Vital signs stable. EXTREMITIES: Examination of the left arm with the removal of the dressing reveals the wound to be well approximated. The swelling has markedly improved and almost back to normal. No real significant redness. The cellulitis is improved. He has full elbow motion. He is neurologically intact. LABORATORY DATA: Culture results are growing out Staph aureus. It is methicillin sensitive. Other cultures are growing out strep. ASSESSMENT: This 26-year-old male postop day 2 from an I&D of the left antecubital fossa abscess, doing much better after the I&D. I do not think this is probably a staph aureus infection based on his operative cultures. The cultures in the ER likely had some degree of contamination. In any case it is strep which should be sensitive to Cephalosporins. PLAN: From an orthopedic standpoint, I think he can be converted to take p.o. antibiotics. He should probably have at least 2 weeks of antibiotics. I should see him back in my clinic in 2 weeks. He can do routine wound care. Any questions can be directed to me at [phone]. Once again, I think it is acceptable convert him to p.o. antibiotics if the medicines are amenable to that and discharge. ELIDIA
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
--- NOTE | 2017-02-27 10:26 | Pharmacy Progress Note ---
Pharmacy Abx Dose Short Note Date of Service Feb 27, 2017. Assessment & Plan Assessment * 26 year old male receiving IV VANCOMYCIN (dosing per pharmacy consult) for treatment of L arm abscess / cellulitis * In addition to IV Vancomycin he is also receiving IV Ceftriaxone * L lower arm abscess cx is growing pansensitive MSSA; preliminary results of L lower arm tissue cx are also growing staph aureus * alpha-hemolytic strep growing in L upper arm wound cx - also a preliminary cx ; this could represent viridans strep * May be able to deescalate abx to a 1st generation cephalosporin if remaining cx's grow MSSA and viridans strep; please note the DELPHINE of staph aureus in cx is 2, which can lead to vancomycin treatment failures. Surgery does note that cellulitis is improving w/ current treatment. * Patient does have a h/o of IV drug abuse. BLCX's remain negative to date * Afebrile and VSS * Day # 5 of antimicrobial therapy Plan Vancomycin * Trough level of 16 mcg/mL is therapeutic and was drawn at the appropriate time. Prior doses appear to have been hung on time as well * Continue dose of 2250 mg IV every 8 hours * Goal trough level for abscess/cellulitis due to an organism with DELPHINE = 2 : ~ 20 mcg/mL * Trough level ordered for: 02/28/17 to screen for further accumulation with an aggressive dosing regimen Pharmacy will continue to follow and will adjust dose/frequency as necessary. Thank you.
[2017-02-27] MEDS ORDERED: CEPHALEXIN MONOHYDRATE 500 MG CAP PO ONE (11:39)
[2017-02-27] MEDS ORDERED: KFL500 PO (11:43)
--- NOTE | 2017-02-27 11:52 | Discharge Instructions ---
Discharge Instructions Date of Service Feb 27, 2017. Admission Reason for Admission: Abscess On Left Arm, Intravenous Drug Abuse Discharge Discharge Diagnosis / Problem: Left arm abscess Discharge Goals Goal(s): Decrease discomfort, Improve function Activity Recommendations Activity Limitations: resume your previous activity KEEP LEFT ARM IN SLING Instructions / Follow-Up Instructions / Follow-Up Continue with oral antibiotics for 12 more days. This will be 2 weeks total of antibiotics. See Dr. Mendiola in 2 week. He can do routine wound care. [phone] Dr. Emmanuel Mendiola Keep arm in sling, and keep incision dry. Current Hospital Diet Patient's current hospital diet: Regular Diet Discharge Diet Recommended Diet: Regular Diet Procedures Procedures Performed: Left Arm Abscess Incision and Drainage Pending Studies Studies pending at discharge: no Medical Emergencies . Who to Call and When: Medical Emergencies: If at any time you feel your situation is an emergency, please call 911 immediately. . Non-Emergent Contact Non-Emergency issues call your: Primary Care Provider Call Non-Emergent contact if: you have a fever, your pain is worsening . . "Provider Documentation" section prepared by Monty Dalton. . VTE Core Measure Inpt VTE Proph given/why not?: Unfractionated heparin SQ
--- NOTE | 2017-02-27 11:53 | Discharge Summary ---
Discharge Summary Date of Service Feb 27, 2017. Discharge Summary Admission Date: Feb 23, 2017 at 23:53 Discharge Date: Feb 27, 2017 Discharge Disposition: Home Principal Diagnosis: left arm asbcess s/p debridement. Medication Reconciliation New Medications: Cephalexin Monohydrate (Cephalexin) 500 Mg Cap 500 MG PO BID for 12 Days, #24 CAP Take 1 capsule PO BID for 12 days Continued Medications: Fish Oil ([place]-3) 1 Ea Cap 1 CAP PO DAILY, CAP Multivitamin (Multivitamin) Tab 1 TAB PO DAILY, TAB Valacyclovir (Valtrex) 500 Mg Tab 1000 MG PO DAILY, TAB Discharge Exam Review of Systems: Constitutional: + fever, No chills Respiratory: No cough, No sputum, No wheezing Abdomen: No pain, No nausea Neurologic: No memory loss, No paralysis, No weakness Hematologic / Lymphatic: No abnormal bleeding/bruising, No clotting problems Physical Exam: General Appearance: WD/WN, no apparent distress Neck: supple, no adenopathy Respiratory/Chest: chest non-tender, lungs clear Cardiovascular: regular rate, rhythm, no edema Abdomen / GI: normal bowel sounds, non tender, soft Skin: + pertinent finding (left arm in sling with dry dressing from surgical procedure.) Lymphatic: no adenopathy Hospital Course 26 y/o M denies any significant medical history aside form IV drug use. States he last used IV heroin 3 weeks prior. Has developed an abscess-like infection over his L antecubital area with extending cellulitis. Denies any associated fevers. Denies any CP, SOB or night sweats. 1) Abscess - secondary to iv drug use S/P I and D. (Day 2) Patient will be discharged on home on oral antibiotics as stated in the discharge med section. Patient educated on preventing tis from happening again and to continue on his current antibiotic regimen. Notes from surgical note. -It was about 8 cm in length total. -Subcutaneous tissues were very indurated and thickened. -The abscess pocket was superficial to the fascia proximally. -cultures were obtained, MSSA showed -necrotic tissue was debrided. -The brachioradialis muscle looked a little inflamed but was not necrotic in any fashion. -The underlying biceps muscle looked to be sealed off from the abscess. -MRI showed: 1. Moderate to extensive subcutaneous edema, phlegmonous change and skin edema throughout the imaged left upper extremity compatible with cellulitis. Focal subcutaneous T2 hyperintense collection of the antecubital fossa just superficial to the pronator teres musculature is compatible with abscess measuring up to 1.1 x 2.3 x 3.4 cm. 2. Thrombophlebitis of the cephalic vein again seen. 3. Moderate reactive or infectious myositis of the brachioradialis musculature. Deep tissue edema extends between the anterior and lateral muscular compartments without intramuscular abscess extension. 4. No significant bone marrow edema or evidence of osteomyelitis. 2) IVDU - Pt may need counseling prior to DC - He initially did not volunteer information reg use and seems to minimize this so we cannot quantify his habit. It would be fair to assume his dependence may be severe considering the route. Patient refused counseling and outpatient referral. Full code - Heparin prophylaxis - Total Time Spent: Greater than 30 minutes This includes examination of the patient, discharge planning, medication reconciliation, and communication with other providers. Discharge Instructions Please refer to the electronic Patient Visit Report (Discharge Instructions) for additional information.
[2017-02-27 12:11] VITALS: BP 117/66; PULSE 55; TEMP 36.5; O2SAT 95
[2017-02-27] MEDS ORDERED: CEPHALEXIN MONOHYDRATE 500 MG CAP PO SCH (21:00)
[2017-02-28] MEDS ORDERED: VANCOMYCIN TROUGH ONE (09:30)
[2017-03-01 14:26] LABS: COD UR NEGATIVE NG/ML (CUTOFF=50); HYDROCOD UR NEGATIVE NG/ML (CUTOFF=50); HYDROMOR UR NEGATIVE NG/ML (CUTOFF=50); HYDROXYETHYLFLURAZEPAM CONF NEGATIVE NG/ML (CUTOFF=50); HYDROXYMIDAZOLAM 339 NG/ML (CUTOFF=50); HYDROXYTRIAZOLAM CONF NEGATIVE NG/ML (CUTOFF=50); MORPHINE UR 2850 NG/ML (CUTOFF=50); NORHYDROCODONE CONF UR NEGATIVE NG/ML (CUTOFF=50); OXYMORPH UR NEGATIVE NG/ML (CUTOFF=50); TEMAZEPAM CONF NEGATIVE NG/ML (CUTOFF=50)
== END 2017-02-27 12:30 | disposition home or self-care (01) | DRG 580 ==
LOC: C.EDC 20:53 → C.MED 23:53 → ENRESERV 02-24
PROVIDERS: ADMIT Internal Medicine; ATTEND Internal Medicine Sports Medicine
PROC: 0H9CXZX Drainage of Left Upper Arm Skin, External Approach, Diagnostic (ICD-10-PCS; 2017-02-23)
PROC: 0J9F0ZZ Drainage of Left Upper Arm Subcutaneous Tissue and Fascia, Open Approach (ICD-10-PCS; principal; 2017-02-25 08:30)
DX: L02.414 Cutaneous abscess of left upper limb (principal); F11.20 Opioid dependence, uncomplicated; Z72.89 Other problems related to lifestyle; Z82.5 Family history of asthma and other chronic lower respiratory diseases; Z83.2 Family history of diseases of the blood and blood-forming organs and certain disorders involving the immune mechanism; Z83.3 Family history of diabetes mellitus; Z82.49 Family history of ischemic heart disease and other diseases of the circulatory system; Z84.1 Family history of disorders of kidney and ureter; Z82.0 Family history of epilepsy and other diseases of the nervous system